=== PATIENT | female | born 1990 | race Two or more races ===

== ENCOUNTER → 2023-03-03 | Emergency (ER) | payer OTHER ==
[~2023-03-03] VITALS: Ht 175.3 cm; Wt 61.2 kg
[~2023-03-03] MED LIST: DROSPIRENONE-E1 EACH; PRILOSEC OTC20 MG; SODIUM CHLORI1000 MG
== END | disposition left against medical advice (07) ==
LOC: ER 14:26
DX: R30.0 Dysuria (principal); Z88.8 Allergy status to other drugs, medicaments and biological substances; Z91.040 Latex allergy status